=== PATIENT | male | born 1940 | race Caucasian/White ===

== ENCOUNTER 2024-10-02 18:58 | Emergency (ER) | payer OTHER ==
[~2024-10-02] VITALS: Ht 175.3 cm; Wt 77.0 kg
[2024-10-02 19:00] VITALS: TEMP 97.6; O2SAT 99
[2024-10-03] MEDS ORDERED: LIDO700A15 TP (01:41)
[2024-10-03] MEDS ORDERED: IBUP-2028 MT (01:41)
[2024-10-03 02:22] VITALS: O2SAT 100
[2024-10-03] MEDS: HYDROCODONE/ACETAMINOPHEN 5/325MG TABLET PO ONE (02:24)
[2024-10-03 02:26] VITALS: PULSE 89
[2024-10-03] MEDS: KETOROLAC 30MG/ML VIAL IM ONE (02:26)
[2024-10-03 02:28] VITALS: BP 123/76; RESP 16
[2024-10-03] MEDS: LIDOCAINE 5% PATCH TOP STA (02:28)
== END 2024-10-03 02:44 | disposition home or self-care (01) ==
LOC: ER 18:58
DX: M47.816 Spondylosis without myelopathy or radiculopathy, lumbar region (principal); W18.2XXA Fall in (into) shower or empty bathtub, initial encounter; Y93.E1 Activity, personal bathing and showering; Y92.89 Other specified places as the place of occurrence of the external cause; Y99.8 Other external cause status
CPT/HCPCS: 99284; 72100; 72170; 96372; J1885